=== PATIENT | male | born 1965 | race Caucasian/White ===

== ENCOUNTER 2020-05-06 17:58 | Emergency (ER) | payer OTHER ==
[~2020-05-06] VITALS: Ht 185.4 cm; Wt 94.2 kg
--- NOTE | 2020-05-06 18:38 | NUR ---
PT WHEELED FROM TRIAGE TO LOBBY. PT CHANGED INTO GOWN AND IS IN GURNEY. PT ATTACHED TO SENIOR ENLISTED ADVISOR AND VS MACHINES AT THIS TIME. PT EXTREMELY HYPERTENSIVE. PIV ACCESS ESTABLISHED AND LABS DRAWN AND TUBED TO LAB AT THIS TIME. PT EDUCATED ON ER PROCESS. AWAITING ERP FOR PT HISTORY AND ASSESSMENT AT THIS TIME. PT HAS CALL LIGHT WITHIN REACH.
--- NOTE | 2020-05-06 18:54 | NUR ---
bedside report from Delgado BEAUCHAMP, pt care transferred at this time. pt nad, resting on erwin arthur erp at bs at this time. pt bed in lowest, call light on lap, rails engaged, wctm. provided warm blankets at this time
[2020-05-06] MEDS ORDERED: LABETALOL 5MG/ML, 20ML IVPush ONE (19:00)
[2020-05-06] MEDS ORDERED: LABETALOL 5MG/ML, 20ML ONE (19:04)
[2020-05-06 19:05] LABS: BASOPHILS % (AUTO) 1 % (0-1); EOSINOPHILS % (AUTO) 2 % (1-7); LYMPHOCYTES % (AUTO) 28 % (22-44); MEAN CORPUSCULAR HEMOGLOBIN 31.5 pg (27.5-34.5); MEAN CORPUSCULAR HGB CONC 34.5 g/dL (33.2-36.2); MEAN PLATELET VOLUME 8.2 fL (7.4-10.4); MONOCYTES % (AUTO) 9 % (2-9); NEUTROPHILS % (AUTO) 61 % (42-75); PLATELET COUNT 258 x10^3/uL (130-400); RED BLOOD COUNT 5.54 x10^6/uL (4.38-5.82); RED CELL DISTRIBUTION WIDTH 13.5 % (9.4-14.8)
[2020-05-06 19:08] LABS: MD NO
[2020-05-06 19:18] LABS: ALBUMIN 4.1 g/dL (3.4-5.0); ANION GAP 5 mmol/L (5-15); CALCIUM 9.3 mg/dL (8.5-10.1); CHLORIDE 106 mmol/L (98-107); CREATININE 1.05 mg/dL (0.7-1.3)
[2020-05-06 19:21] LABS: TROPONIN I < 0.015 ng/mL (0.000-0.045)
[2020-05-06] MEDS ORDERED: CAPTOPRIL 50 MG TABLET PO ONE (20:00)
[2020-05-06] MEDS ORDERED: CAPTOPRIL 25 MG TABLET PO ONE (20:00)
--- NOTE | 2020-05-06 20:19 | NUR ---
PT RESTING ON GUDEBBIE, NAD, MEDICATED PER JUN, NO CHANGE IN CONDITION, WCTM.
[2020-05-06 21:30] VITALS: BP 180/101
--- NOTE | 2020-05-06 21:31 | NUR ---
Patientr given discharge instructions and they have confirmed that they understand the instructions. Patient ambulatory with steady gait. NAD, DENIES ADDITIONAL NEEDS, ALL QUESTIONS ANSWERED APPROPRIATELY. NO PERSONAL BELONGINGS LEFT IN ROOM AFTER DC.
== END 2020-05-06 21:32 | disposition home or self-care (01) ==
LOC: ED 21:15
DX: I10 Essential (primary) hypertension (principal); R51.9 Headache, unspecified; R00.2 Palpitations; R00.0 Tachycardia, unspecified; R07.9 Chest pain, unspecified
CPT/HCPCS: 36415; 70450; 71045; 80048; 82040; 84484; 85025; 93005; 96374; 99285